=== PATIENT | female | born 1995 | race Caucasian/White ===

== ENCOUNTER 2018-05-31 09:18 | Emergency (ER) | payer OTHER ==
--- NOTE | 2018-05-31 09:42 | ER Report ---
History and Physical Time Seen By MD: 09:41 Hx. of Stated Complaint: PT STARTED HAVING VAGINAL BLEEDING LAST NIGHT. PT REPORTS SPOTTING BUT THEN DEVELOPED CRAMPING THIS MORNING ON THE RIGHT SIDE. PT IS HERE ON VACATION WITH FAMILY FROM [place], WAS SECHULED FOR ULTRASOUND ONCE THEY RETURNED. THIS IS PTS FIRST HPI/ROS CHIEF COMPLAINT: vaginal bleeding and right lower abdomen pain/cramping, 8 weeks HISTORY OF PRESENT ILLNESS: This is a 22 year old female. She is visiting from [place]. She has several positive tests about 8 weeks ago and has an upcoming appointment to see SLEEPING CAR CONDUCTOR for initiating care of her . She had the tests shortly after removal of an IUD. No vaginal bleeding up until yesterday with some spotting, and cramping in right lower abdomen which started this morning. Worsened in the night time, then decreasing again. No current pain. This is her first . No fevers or chills. Having some loose stools, about twice a day. No burning or frequency with urination. Allergies: Coded Allergies: No Known Drug Allergies (Unverified , 05/31/18) Home Meds No Active Prescriptions or Reported Meds Reviewed Nurses Notes: Yes Hx Substance Use Disorder: No Constitutional Vital Sign - Last 24 Hours 05/31/18 05/31/18 05/31/18 05/31/18 09:18 09:26 09:26 09:30 Temp 97.9 Pulse 139 80 Resp 20 B/P (MAP) 121/76 121/76 (91) 109/73 (85) Pulse Ox 97 96 O2 Delivery Room Air 05/31/18 05/31/18 05/31/18 05/31/18 09:48 10:00 10:18 10:30 Pulse 75 73 B/P (MAP) 107/69 (82) 103/71 (82) Pulse Ox 95 97 05/31/18 05/31/18 05/31/18 05/31/18 10:48 11:00 11:05 12:20 Pulse 70 78 72 B/P (MAP) 108/75 (86) Pulse Ox 96 93 96 05/31/18 12:30 B/P (MAP) 104/65 (78) Physical Exam General Appearance: The patient is alert. Tearful and very concerned. Eyes: Pupils are equal, round. No pallor, injection or icterus. ENT: Mucous membranes are moist. Normal oral mucosa. Respiratory: Breathing easily and unlabored. Lungs are clear to auscultation. Cardiovascular: Regular rate and rhythm. No murmurs, gallops or rubs. Normal capillary refill. No edema. Gastrointestinal: Abdomen is soft, discomfort in right lower abdomen, but no other tenderness. Nondistended. No rebound or guarding. Normal active bowel sounds. No costovertebral angle tenderness with percussion. Neurological: Alert and oriented x3. No focal neurologic deficits. Skin: Warm and dry. Musculoskeletal: Extremities are nontender. Full range of motion. No tenderness in palpation of the cervical, thoracic and lumbar spine. Pelvic exam: The vulva was normal no lesions. The vagina did not have significant discharge, had small amount of blood pooling in posterior vagina. The cervix was closed, small amount of blood from the os, no discharge otherwise , no cervical motion tenderness with speculum or on bimanual exam. The uterus was normal size. The adnexa had no masses and mild right tenderness. The exam was performed with a radio control crane operator. DIFFERENTIAL DIAGNOSIS: After history and physical exam, differential diagnosis was considered for 8 weeks female with vaginal bleeding and cramping, suspect threatened miscarriage Medical Decision Making Data Points Result Diagram: 05/31/18 0930 05/31/18 0930 Laboratory Hematology Test 05/31/18 09:30 Red Blood Count 4.78 M/uL (4.17-5.56) Mean Corpuscular Volume 90.6 fL (80.0-96.0) Mean Corpuscular Hemoglobin 30.7 pg (26.0-33.0) Mean Corpuscular Hemoglobin Concent 33.9 g/dL (32.0-36.0) Red Cell Distribution Width 12.9 % (11.5-14.5) Mean Platelet Volume 9.1 fL (7.2-11.1) Neutrophils (%) (Auto) 53.3 % (39.4-72.5) Lymphocytes (%) (Auto) 35.6 % (17.6-49.6) Monocytes (%) (Auto) 8.1 % (4.1-12.4) Eosinophils (%) (Auto) 2.0 % (0.4-6.7) Basophils (%) (Auto) 1.0 % (0.3-1.4) Nucleated RBC Relative Count (auto) 0.1 /100WBC Neutrophils # (Auto) 3.3 K/uL (2.0-7.4) Lymphocytes # (Auto) 2.2 K/uL (1.3-3.6) Monocytes # (Auto) 0.5 K/uL (0.3-1.0) Eosinophils # (Auto) 0.1 K/uL (0.0-0.5) Basophils # (Auto) 0.1 K/uL (0.0-0.1) Nucleated RBC Absolute Count (auto) 0.01 K/uL Urine Color Straw Urine Clarity Clear Urine pH 8.0 pH (4.8-9.5) Urine Specific [place] 1.005 Urine Protein Negative mg/dL (NEGATIVE) Urine Glucose (UA) Negative mg/dL (NEGATIVE) Urine Ketones Negative mg/dL (NEGATIVE) Urine Blood Moderate (NEGATIVE) Urine Nitrite Negative (NEGATIVE) Urine Bilirubin Negative (NEGATIVE) Urine Urobilinogen Negative mg/dL (0.2-1.9) Urine Leukocyte Esterase Negative (NEGATIVE) Urine RBC 3 /HPF (0-2/HPF) Urine WBC 1 /HPF (0-5/HPF) Urine Squamous Epithelial Cells Moderate /LPF (</=FEW) Urine Bacteria Negative /HPF (NONE-FEW) Urine Mucus None /HPF (NONE-FEW) Sodium Level 141 mmol/L (137-145) Potassium Level 4.0 mmol/L (3.5-5.0) Chloride Level 104 mmol/L (98-107) Carbon Dioxide Level 26 mmol/L (22-31) Blood Urea Nitrogen 10 mg/dl (7-18) Creatinine 0.70 mg/dl (0.52-1.04) Glomerular Filtration Rate Calc > 60.0 Random Glucose 88 mg/dl (75-110) Calcium Level 9.3 mg/dl (8.4-10.2) Total Bilirubin 1.0 mg/dl (0.2-1.3) Aspartate Amino Transf (AST/SGOT) 40 U/L (0-35) Alanine Aminotransferase (ALT/SGPT) 28 U/L (0-56) Alkaline Phosphatase 62 U/L (0-126) Total Protein 8.0 g/dl (6.3-8.2) Albumin 4.6 g/dl (3.5-5.0) Human Chorionic Gonadotropin, Qual Negative (NEGATIVE) Chemistry Test 05/31/18 09:30 White Blood Count 6.2 k/uL (4.5-11.0) Red Blood Count 4.78 M/uL (4.17-5.56) Hemoglobin 14.7 g/dL (12.0-16.0) Hematocrit 43.3 % (34.0-47.0) Mean Corpuscular Volume 90.6 fL (80.0-96.0) Mean Corpuscular Hemoglobin 30.7 pg (26.0-33.0) Mean Corpuscular Hemoglobin Concent 33.9 g/dL (32.0-36.0) Red Cell Distribution Width 12.9 % (11.5-14.5) Platelet Count 220 K/uL (150-450) Mean Platelet Volume 9.1 fL (7.2-11.1) Neutrophils (%) (Auto) 53.3 % (39.4-72.5) Lymphocytes (%) (Auto) 35.6 % (17.6-49.6) Monocytes (%) (Auto) 8.1 % (4.1-12.4) Eosinophils (%) (Auto) 2.0 % (0.4-6.7) Basophils (%) (Auto) 1.0 % (0.3-1.4) Nucleated RBC Relative Count (auto) 0.1 /100WBC Neutrophils # (Auto) 3.3 K/uL (2.0-7.4) Lymphocytes # (Auto) 2.2 K/uL (1.3-3.6) Monocytes # (Auto) 0.5 K/uL (0.3-1.0) Eosinophils # (Auto) 0.1 K/uL (0.0-0.5) Basophils # (Auto) 0.1 K/uL (0.0-0.1) Nucleated RBC Absolute Count (auto) 0.01 K/uL Urine Color Straw Urine Clarity Clear Urine pH 8.0 pH (4.8-9.5) Urine Specific [place] 1.005 Urine Protein Negative mg/dL (NEGATIVE) Urine Glucose (UA) Negative mg/dL (NEGATIVE) Urine Ketones Negative mg/dL (NEGATIVE) Urine Blood Moderate (NEGATIVE) Urine Nitrite Negative (NEGATIVE) Urine Bilirubin Negative (NEGATIVE) Urine Urobilinogen Negative mg/dL (0.2-1.9) Urine Leukocyte Esterase Negative (NEGATIVE) Urine RBC 3 /HPF (0-2/HPF) Urine WBC 1 /HPF (0-5/HPF) Urine Squamous Epithelial Cells Moderate /LPF (</=FEW) Urine Bacteria Negative /HPF (NONE-FEW) Urine Mucus None /HPF (NONE-FEW) Glomerular Filtration Rate Calc > 60.0 Calcium Level 9.3 mg/dl (8.4-10.2) Total Bilirubin 1.0 mg/dl (0.2-1.3) Aspartate Amino Transf (AST/SGOT) 40 U/L (0-35) Alanine Aminotransferase (ALT/SGPT) 28 U/L (0-56) Alkaline Phosphatase 62 U/L (0-126) Total Protein 8.0 g/dl (6.3-8.2) Albumin 4.6 g/dl (3.5-5.0) Human Chorionic Gonadotropin, Qual Negative (NEGATIVE) Urinalysis Test 05/31/18 09:30 Urine Color Straw Urine Clarity Clear Urine pH 8.0 pH (4.8-9.5) Urine Specific [place] 1.005 Urine Protein Negative mg/dL (NEGATIVE) Urine Glucose (UA) Negative mg/dL (NEGATIVE) Urine Ketones Negative mg/dL (NEGATIVE) Urine Blood Moderate (NEGATIVE) Urine Nitrite Negative (NEGATIVE) Urine Bilirubin Negative (NEGATIVE) Urine Urobilinogen Negative mg/dL (0.2-1.9) Urine Leukocyte Esterase Negative (NEGATIVE) Urine RBC 3 /HPF (0-2/HPF) Urine WBC 1 /HPF (0-5/HPF) Urine Squamous Epithelial Cells Moderate /LPF (</=FEW) Urine Bacteria Negative /HPF (NONE-FEW) Urine Mucus None /HPF (NONE-FEW) EKG/Imaging Imaging Transabdominal and transvaginal pelvic ultrasound INDICATION: Positive home test. Vaginal bleeding. Right-sided pain. COMPARISON: None Available FINDINGS: Uterus measures 8.3 x 4.0 x 5.0 cm and is anteverted. Double wall endometrial stripe measures 4-5 mm and is homogeneous. No evidence of intrauterine . There is a small volume of free fluid in the cul-de-sac. Pelvic vessels appear unremarkable on this examination. Right ovary measures 3.2 x 2.8 x 2.3 cm and shows normal blood flow and contains several small follicles. Left ovary measures 2.4 x 2.6 x 2.1 cm and shows normal blood flow and contains several small follicles. No evidence of adnexal hematoma. IMPRESSION: 1. Normal sonographic appearance of the uterus and ovaries. No sonographic evidence of intrauterine . 2. Small volume of free pelvic fluid. Report Dictated By: Ramakrishna Molina at 05/31/2018 12:18 PM ED Course/Re-evaluation Clinical Indication for ER IV: IV Access ED Course After the initial evaluation, concern for threatened miscarriage. Qualitative and quantitative HCG ordered, but initial test came back negative. This was repeated and was negative as well. Quantitative canceled. Ultrasound shows not evidence of or other pathology, although some free fluid in the pelvic that could be related to menses, or less likely a ruptured ovarian cyst. Unsure if this represents a menses with cramping pain or a ruptured cyst. Unsure if was present given that the testing was done after IUD removal, or if and when miscarriage happened previously. This bleeding is not going to be due to miscarriage with negative test. Reviewed these results with the patient. Recommend conservative treatment with Ibuprofen and to treat this like a normal period. Follow-up to be done by the patient's OB/ PRESENTATION DESIGNER in [place]. Return sooner here or to an urgent care if further problems. Decision to Disposition Date: May 31, 2018 Decision to Disposition Time: 12:46 Depart Departure Latest Vital Signs Vital Signs Date Time Temp Pulse Resp B/P (MAP) Pulse Ox O2 Delivery O2 Flow Rate FiO2 05/31/18 12:30 104/65 (78) 05/31/18 12:20 72 96 05/31/18 09:26 97.9 20 Room Air Impression: Primary Impression: Dysmenorrhea Condition: Improved Disposition: HOME OR SELF-CARE New Scripts No Active Prescriptions or Reported Meds Patient Instructions: Dysmenorrhea (ED), Miscarriage (ED) Additional Instructions: The testing today reveals that you are not . The bleeding and pain is most likely due to your menses. It could have been caused by a ruptured ovarian cyst as well. The test was negative. It is unknown why you had a positive test 8 weeks ago, but now negative, without evidence of a miscarriage. We recommend follow-up with your SLEEPING CAR CONDUCTOR once you return home. Ibuprofen 200mg over the counter tablets, take 3-4 every 8 hours as needed for pain. Take with food. SANFORD LEGER MD May 31, 2018 09:42
[2018-05-31 10:15] LABS: PLATELET COUNT, AUTOMATED 220 K/uL (150-450)
[2018-05-31] MEDS ORDERED: NS(*) 0.9% 1000 ML BAG 1,000 ML IV ONE (10:35)
--- NOTE | 2018-05-31 12:26 | RADIOLOGY IMAGING REPORT ---
[place] [facility] [place] Eva [place] : 1995 MR: [id number] V: [id number] EXAM DATE: ORDERING PHYSICIAN: SANFORD LEGER TECHNOLOGIST: Location: [facility] [place] Patient: Eva Benjamin : 1995 Visit/Account:[id number] Date of Sevice: 05/31/2018 Transabdominal and transvaginal pelvic ultrasound INDICATION: Positive home test. Vaginal bleeding. Right-sided pain. COMPARISON: None Available FINDINGS: Uterus measures 8.3 x 4.0 x 5.0 cm and is anteverted. Double wall endometrial stripe measures 4-5 mm and is homogeneous. No evidence of intrauterine pregn som. There is a small volume of free fluid in the cul-de-sac. Pelvic vessels appear unremarkable on this examination. Right ovary measures 3.2 x 2.8 x 2.3 cm and shows normal blood flow and contains several small follic les. Left ovary measures 2.4 x 2.6 x 2.1 cm and shows normal blood flow and contains several small follicl es. No evidence of adnexal hematoma. IMPRESSION: 1. Normal sonographic appearance of the uterus and ovaries. No sonographic evidence of intrauterine . 2. Small volume of free pelvic fluid. Report Dictated By: Ramakrishna Molina at 05/31/2018 12:18 PM Report E-Signed By: Ramakrishna Molina at 05/31/2018 12:22 PM WSN:[email or web address]
[2018-05-31 12:30] VITALS: BP 104/65
== END 2018-05-31 13:00 | disposition home or self-care (01) ==
LOC: ER 09:20
DX: N94.6 Dysmenorrhea, unspecified (principal)
CPT/HCPCS: 76856; 81001; 84703; 85025; 86900; 86901; 96360; 96361; 99284; J7030; 82040; 82247; 82310; 82374; 82435; 82565; 82947; 84075; 84132; 84155; 84295; 84450; 84460; 84520